=== PATIENT | female | born 1990 | race American Indian/Alaskan Native ===

== ENCOUNTER 2016-05-29 17:47 | Emergency (ER) | payer BC, OTHER ==
[2016-05-29 17:51] VITALS: RESP 20; O2SAT 99
--- NOTE | 2016-05-29 19:43 | C.PDOC ---
History Of Present Illness 25 year old patient presents to the ED complaining of flu-like symptoms for the past week. Patient states she has a cough, runny nose, and body aches. She took OTC DayQuil with no relief. She also took Tylenol, but it gave her a rash. Patient denies any fever, nausea, vomiting, or wheezing. Time Seen by Provider: 05/29/16 18:34 Chief Complaint (Nursing): Flu-like Symptoms History Per: Patient History/Exam Limitations: no limitations Onset/Duration Of Symptoms: Other (1 week) Current Symptoms Are (Timing): Still Present Location Of Pain: Other Sick Contacts (Context): None Associated Symptoms: Cough, Other (nasal discharge) Severity: Mild Pain Scale Rating Of: 3 Recent travel outside of the [place]: No Past Medical History Reviewed: Historical Data, Nursing Documentation, Vital Signs Vital Signs: Last Vital Signs Temp 98.5 F 05/29/16 19:46 Pulse 106 H 05/29/16 19:46 Resp 20 05/29/16 19:46 BP 98/67 L 05/29/16 19:46 Pulse Ox 99 05/29/16 20:08 Family History: States: No Known Family Hx - Social History Hx Alcohol Use: No Hx Substance Use: No - Immunization History Hx Tetanus Toxoid Vaccination: Yes Hx Influenza Vaccination: Yes Hx Pneumococcal Vaccination: Yes Review Of Systems Except As Marked, All Systems Reviewed And Found Negative. Constitutional: Positive for: Other (body aches). Negative for: Fever ENT: Positive for: Nose Discharge Respiratory: Positive for: Cough. Negative for: Wheezing Gastrointestinal: Negative for: Nausea, Vomiting Skin: Positive for: Rash Physical Exam - Physical Exam Appears: Non-toxic, No Acute Distress Skin: Warm, Dry, Rash (urticarial rash to bilateral arms) Head: Atraumatic, Normacephalic Eye(s): bilateral: Normal Inspection, PERRL, EOMI Ear(s): Bilateral: Normal Nose: Normal Oral Mucosa: Moist Tongue: Normal Appearing, No Swelling Lips: Normal Appearing, No Swelling Throat: Normal, No Erythema, No Exudate Neck: Normal ROM, Supple Chest: Symmetrical, No Tenderness Cardiovascular: Rhythm Regular, No Friction Rub, No Murmur Respiratory: Normal Breath Sounds, No Decreased Breath Sounds, No Accessory Muscle Use, No Rales, No Rhonchi, No Wheezing Gastrointestinal/Abdominal: Soft, No Tenderness Back: Normal Inspection, No CVA Tenderness Extremity: Normal ROM, No Swelling Neurological/Psych: Oriented x3, Normal Speech, Normal Motor Gait: Steady ED Course And Treatment O2 Sat by Pulse Oximetry: 99 (RA) Pulse Ox Interpretation: Normal Progress Note: Benadryl and Prednisone are given. Upon reassessment, patient states she feel improvement of her symptoms. Patient remains afebrile, lungs are CTA, and abdomen is soft. Patient is discharged and instructed to follow up with PMD. Return if symptoms worsen. Disposition - Disposition Referrals: Emiliana Santana MD [Staff Provider] - Disposition: HOME/ ROUTINE Disposition Time: 19:43 Condition: GOOD Additional Instructions: Follow up with the medical doctor within 1-2 days. Return if worsened. Prescriptions: DiphenhydrAMINE [Benadryl] 25 mg PO Q4H PRN #30 cap PRN Reason: Itching / Pruritus Ibuprofen [Motrin] 600 mg PO TID #21 tab Benzonatate [Tessalon Perles] 100 mg PO TID PRN #21 sgl PRN Reason: Cough predniSONE [Prednisone] 20 mg PO BID #10 tab Instructions: Urticaria (ED), Upper Respiratory Infection (ED) Forms: Work Excuse - Clinical Impression Clinical Impression: Influenza-like illness, Urticaria - PA / FIELD REP / Resident Statement MD/DO has reviewed & agrees with the documentation as recorded. - Scribe Statement The provider has reviewed the documentation as recorded by the Scribe Blossom Mc All medical record entries made by the Scribe were at my direction and personally dictated by me. I have reviewed the chart and agree that the record accurately reflects my personal performance of the history, physical exam, medical decision making, and the department course for this patient. I have also personally directed, reviewed, and agree with the discharge instructions and disposition.
[2016-05-29 20:12] VITALS: BP 98/67; PULSE 106; TEMP 98.5
== END 2016-05-29 19:51 | disposition home or self-care (01) ==
LOC: C.ER 17:47
DX: J11.1 Influenza due to unidentified influenza virus with other respiratory manifestations (principal); L50.9 Urticaria, unspecified

== ENCOUNTER 2016-11-28 11:26 | Emergency (ER) | payer BC, OTHER ==
[2016-11-28] MEDS ORDERED: Sodium Chloride 0.9% 1,000 ML IV ONE (13:12)
--- NOTE | 2016-11-28 13:26 | C.PDOC ---
History Of Present Illness 26 year old female, with no significant past medical history, presents to the ED for evaluation of headache associated with nausea and vomiting since this morning. Patient states she had two episodes of vomiting while at work earlier today and one episode after ED arrival. Patient notes she took Advil at 0800 this morning without significant relief. Patient denies past medical history of migraines and denies experiencing a similar headache in the past. Patient reports chills and nausea currently in the ED and denies fever, vision change, neck pain, abdominal pain. (Sharifa Medeiros) History Per: Patient History/Exam Limitations: no limitations Onset/Duration Of Symptoms: Hrs Current Symptoms Are (Timing): Still Present Quality: Aching Preceeding Symptoms: denies: Visual Disturbances, Known Migraine Symptoms Associated Symptoms: Nausea, Vomiting. denies: Photophobia, Blurred Vision, Extremity Weakness Additional History Per: Patient Time Seen by Provider: 11/28/16 12:59 Chief Complaint (Nursing): GI Problem Past Medical History Reviewed: Historical Data, Nursing Documentation, Vital Signs - Medical History PMH: No Chronic Diseases Surgical History: No Surg Hx Family History: States: Unknown Family Hx - Social History Hx Alcohol Use: No Hx Substance Use: No - Immunization History Hx Tetanus Toxoid Vaccination: Yes Hx Influenza Vaccination: No Hx Pneumococcal Vaccination: Yes Vital Signs: Last Vital Signs Temp 97.7 F 11/28/16 14:15 Pulse 72 11/28/16 14:15 Resp 16 11/28/16 14:15 BP 106/69 11/28/16 14:15 Pulse Ox 98 11/28/16 14:40 Review Of Systems Constitutional: Positive for: Chills. Negative for: Fever Eyes: Negative for: Vision Change Gastrointestinal: Positive for: Nausea, Vomiting. Negative for: Abdominal Pain Musculoskeletal: Negative for: Neck Pain Neurological: Positive for: Headache. Negative for: Weakness, Numbness Physical Exam - Physical Exam Appears: Non-toxic, No Acute Distress Skin: Normal Color, Warm, Dry Head: Atraumatic, Normacephalic Eye(s): bilateral: Normal Inspection, PERRL, EOMI, Other (no photophobia ) Oral Mucosa: Moist Neck: Normal ROM, No Midline Cervical Tenderness, Supple Chest: Symmetrical, No Deformity, No Tenderness Cardiovascular: Rhythm Regular Respiratory: Normal Breath Sounds, No Rales, No Rhonchi, No Wheezing Gastrointestinal/Abdominal: Soft, No Tenderness, No Guarding, No Rebound Extremity: Normal ROM, Capillary Refill (less than 2 seconds ) Neurological/Psych: Oriented x3, Normal Speech, Normal Cognition, Other (no focal deficits ) Gait: Steady ED Course And Treatment O2 Sat by Pulse Oximetry: 98 (on RA) Pulse Ox Interpretation: Normal Progress Note: Reglan IV, Toradol IVP and IV Fluids administered. On re- examination, patient is resting comfortably, tolerating PO intake, reports an improvement in her symptoms, and is comfortable with going home. Patient continues to show no focal deficits and has a steady gait. Patient is advised to follow up with her PMD within 2-5 days for further evaluation and/or return to the ED if symptoms worsen. Reassessment Condition: Improved Disposition - Disposition Disposition Time: 14:31 - Disposition Disposition: HOME/ ROUTINE Condition: STABLE Additional Instructions: Follow up with your primary medical doctor or clinic in 2-5 days for further evaluation. Take medications as prescribed. Return to the emergency department at any time if symptoms persist or worsen. Prescriptions: Naproxen [Naprosyn] 1 tab PO BID PRN #20 tab PRN Reason: Pain Instructions: Acute Headache (ED) Forms: [employer] (Urdu) - Clinical Impression Clinical Impression: Headache - PA / SKIN TANNER / Resident Statement MD/DO has reviewed & agrees with the documentation as recorded. - Scribe Statement The provider has reviewed the documentation as recorded by the Scribe (Carol Mc) - Scribe Statement All medical record entries made by the Scribe were at my direction and personally dictated by me. I have reviewed the chart and agree that the record accurately reflects my personal performance of the history, physical exam, medical decision making, and the department course for this patient. I have also personally directed, reviewed, and agree with the discharge instructions and disposition. (Sharifa Medeiros)
[2016-11-28] MEDS ORDERED: Sodium Chloride 0.9% 1,000 ML ONE (13:35)
[2016-11-28 14:16] VITALS: BP 106/69; PULSE 72; RESP 16; TEMP 97.7
[2016-11-28 14:33] VITALS: O2SAT 98
== END 2016-11-28 15:04 | disposition home or self-care (01) ==
LOC: C.ER 11:26
DX: R51 Headache (principal)
CPT/HCPCS: 96361; 96374; 99284; J1885; J2765; J7040